=== PATIENT | female | born 1975 | race Caucasian/White ===

== ENCOUNTER 2018-12-25 05:49 | Day surgery (SDC) | payer OTHER ==
[2018-12-25] MEDS ORDERED: ROCURONIUM 50 MG INJ (07:02)
[2018-12-25] MEDS ORDERED: LIDOCAINE 2% (SDV) 5 ML INJ (07:02)
[2018-12-25] MEDS ORDERED: MIDAZOLAM 1 MG/ML 2 ML INJ (07:02)
[2018-12-25] MEDS ORDERED: FENTAnyl 50 MCG/ML VIAL (07:02)
[2018-12-25] MEDS ORDERED: CEFAZOLIN 1 GM INJ (07:02)
[2018-12-25] MEDS ORDERED: PROPOFOL 20 ML (07:02)
[2018-12-25] MEDS ORDERED: FAMOTIDINE 20 MG INJ (07:55)
[2018-12-25] MEDS ORDERED: ONDANSETRON 4 MG INJ (07:55)
[2018-12-25] MEDS ORDERED: METOCLOPRAMIDE 10 MG INJ (07:55)
[2018-12-25] MEDS ORDERED: DEXAMETHASONE 4 MG/ML 5 ML INJ (07:55)
[2018-12-25] MEDS ORDERED: NEOSTIGMINE 10 MG INJ (07:59)
[2018-12-25] MEDS ORDERED: GLYCOPYRROLATE 0.4 MG INJ (07:59)
[2018-12-25] MEDS ORDERED: MEPERIDINE 25 MG INJ IV (08:00)
[2018-12-25] MEDS ORDERED: FENTAnyl 50 MCG/ML VIAL IV ×2 (08:00)
[2018-12-25] MEDS ORDERED: OXYCODONE/ACETAMINOPHEN (5/325) TAB PO ×2 (08:00)
[2018-12-25] MEDS: BUPIVACAINE 0.5%/EPI (SDV) 30 ML INJ (08:15)
[2018-12-25] MEDS: ONDANSETRON 4 MG INJ IV (09:06)
[2018-12-25] MEDS: FENTAnyl 50 MCG/ML VIAL IV (09:07)
== END 2018-12-25 10:50 | disposition home or self-care (01) ==
LOC: SDS 05:49
DX: Z30.2 Encounter for sterilization (principal)
CPT/HCPCS: 58661; 88302; 93005

== ENCOUNTER 2018-12-28 19:10 | Emergency (ER) | payer OTHER ==
[2018-12-28] MEDS: MAGNESIUM CITRATE 300 ML BTL PO (21:24)
[2018-12-28] MEDS: GLYCERIN (ADULT) SUPP PR (21:24)
== END 2018-12-28 23:58 | disposition home or self-care (01) ==
LOC: FTE 19:10
DX: K59.00 Constipation, unspecified (principal)
CPT/HCPCS: 74018; 99283-25